=== PATIENT | female | born 1970 | race Caucasian/White ===

== ENCOUNTER 2018-08-18 20:06 | Emergency (ER) | payer OTHER, SELFPAY ==
[2018-08-18 20:08] VITALS: BP 105/68; PULSE 79; RESP 15; TEMP 36.7; BMI 30.6
--- NOTE | 2018-08-18 20:24 | ED.RN ---
PT ARRIVES REPORTING 2 DAYS OF DIARRHEA. STATES SINCE LAST NIGHT SHE FELT THAT SOMETHING WAS COMING OUT OF HER RECTUM. DENIES BLEEDING. DENIES HX HEMMORRHOIDS. REPORTS SHE OSCILLATES BETWEEN CONSTIPATION AND DIARRHEA REGULARLY.
--- NOTE | 2018-08-18 20:51 | ED.VIS.GEN ---
History of Present Illness Chief Complaint: Other, Pain/Inj Detail of Chief Complaint: rectal pain Informant: Patient Onset: Yesterday Context: Gradual Onset Timing: Continuous Quality: discomfort/swelling Location: perianal Current Severity: Moderate Maximum Severity: Moderate Worsened by: sitting Relieved by: nothing. tried hemorrhoid pads. Associated Symptoms: some diarrhea yest. generalized mild abd discomfort. no n/v. Narrative: Patient states she commonly goes back and forth from constipation to significant diarrhea. Yesterday she had some of the diarrhea she states that was not uncommon, but the anal discomfort that followed it she has never had before, it has worsened today. Past Medical History - Allergies and Home Meds Allergies/Adverse Reactions: Allergies Penicillins Allergy (Verified 08/18/18 20:11) Hives Primary Care Physician: Fito Covington MD [Primary Care Provider] - Past Medical History: None Lives: Spouse/ Significant Other Smoking Status: Never smoker Review of Systems General: Denies: Chills, Fever Gastrointestinal: Reports: Abdominal pain, Diarrhea, - - anal pain. Denies: Nausea, Vomiting, Melena, Hematochezia Genitourinary: Denies: Dysuria, Hematuria, Frequency Musculoskeletal: Denies: Neck pain, Back pain Physical Exam Vital Signs/Narrative: Vital Signs Temp Pulse Resp BP 08/18/18 20:08 98.1 F 79 15 105/68 Inital Vital Signs reviewed: Yes General: Well nourished, Well developed, No Acute Distress Head: Normocephalic, Atraumatic Abdomen: Soft, Nontender, Nondistended, Normal bowel sounds Rectal: Tenderness - 3cm thrombosed hemorrhoid approx 3 o'clock. no active bleeding/blood. Skin: Normal color, No rash Neurological: Alert, Oriented x3, Cranial nerves II-XII grossly intact, Normal Strength, Normal Sensation Psychological: Normal affect, Normal Mood Diagnostic/Tx/Re-eval - Medical Decision Making Thrombosed hemorrhoid incised and drained, I think this is responsible for her symptoms. Advised with regards to sit beds, dressings, and outpatient surgical follow-up if needed for recurrence. Advised to use topical anti-hemorrhoid medications after bleeding stops. Procedures Procedure(s): Incision and drainage of thrombosed hemorrhoid --prepped with chlorhexidine, anesthetized locally with 8 cc total of 1% lidocaine, incised radially with a 0.5 cm incision with a #11 blade, significant amount of clot was removed with minimal bleeding. Tolerated well. ED Disposition - Plan for ED Patient: Disposition: Home or Assisted Living Diagnosis: Thrombosed external hemorrhoid Instructions: Thrombosed Hemorrhoids Referrals: Phan Vitale MD [STAFF PHYSICIAN] - As Needed Additional Instructions: Sits baths twice daily with warm-hot soapy water. Afterwards, pat dry and dressed with antibiotic ointment and gauze dressing for the next several days until bleeding is resolved. Then, you may continue anti-hemorrhoid medications/creams.
== END 2018-08-18 22:53 | disposition home or self-care (01) ==
PROVIDERS: Emergency Provider Emergency Medicine; Family Provider Family Medicine; PCP Family Medicine
DX: K64.5 Perianal venous thrombosis (principal)
CPT/HCPCS: 46083; 99282

== ENCOUNTER 2019-11-10 02:37 | Observation (INO) | payer OTHER, SELFPAY ==
[2019-11-10] VITALS (8 sets, daily range): BP systolic 107–134; BP diastolic 60–86; PULSE 68–119; RESP 16–20; TEMP 36.6–37.1; O2SAT 96–100; BMI 30.7; BMI 30.3
--- NOTE | 2019-11-10 02:49 | EKG12_ITS ---
Test Reason : NAUSEA/VOMITING Blood Pressure : / mmHG Vent. Rate : 089 BPM Atrial Rate : 089 BPM P-R Int : 142 ms QRS Dur : 072 ms QT Int : 410 ms P-R-T Axes : 000 040 056 degrees QTc Int : 498 ms Normal sinus rhythm Prolonged QT Abnormal ECG Confirmed by VIJAY BLACKMON, MILADY ([id number]), associate editor KEE MOCK ([id number] on 11/11/2019 11:14:26 AM Referred By: LYNN Confirmed By:MILADY LINARES MD
--- NOTE | 2019-11-10 02:49 | ED.DCSUM_ITS ---
- ER Visit Summary Date of Service: 11/10/19 Chief Complaint: Nausea, vomiting and abdominal cramping History of Present Illness: The patient is a 49 F past medical history of depression anxiety. Prior tubal ligation. Also prior heart surgery at 8 years old for what sounds like either an ASD or VSD. Patient states she generally feels well today. Started having abdominal cramping this evening and around 130 this a.m. she started having nausea and vomiting. No diarrhea. No fever. No dysuria. She states she is several days late for her last menstrual period but has had a prior tubal ligation. She denies any dysuria. Physical Examination: Middle-aged female diaphoretic and pale. Vital signs are stable initial blood pressure 134/86. Heart rate 119. Afebrile. She does not look septic. HEENT exam dry mucous membranes. Neck nontender no lymphadenopathy no meningismus. Lungs are clear to auscultation bilaterally. No rales no rhonchi no wheezing. Heart tachycardic rate about 120 no murmur. Abdomen soft. Nondistended. Normal bowel sounds no peritoneal signs. Both the right upper right lower quadrants are unremarkable. No hernia or masses. No signs of obstruction. Moving all 4 extremities. Nontender no edema. Neurologically she is awake alert with no focal motor deficits. Skin is pale and diaphoretic. Test Results: BC shows an elevated white count of 20,000. Hemoglobin 14. No bands. Chemistries unremarkable normal creatinine and gap. Serum test negative. Due to the elevated white count if not may just be secondary to her intractable vomiting I did obtain a CAT scan of the abdomen and pelvis with IV contrast. CAT scan read by the radiologist is concern for possible partial mid small bowel obstruction. There is mild dilatation of the bowel. Also a hiatal hernia. No perforation. No signs of appendicitis. I also reviewed the CAT scan Emergency Department Course and Treatment: Patient treated with IV fluids and IV Zofran. Screening labs to be obtained. Repeat exam at 3:35 AM patient is starting to have some relief of her nausea with the IV Zofran and improvement with the IV fluids. With the elevated white count and epigastric discomfort I did obtain a CT. Repeat exam patient is feeling much better 4:39 AM. Abdomen is benign. Soft. She is currently nontender. She is only received nausea medications. I went over all test results with the patient. We did specifically discussed the CAT scan. This may be a conservative interpretation for partial small bowel obstruction or that it is resolving now clinically. Treatment Plan: Observation admission for further assessment. Disposition: Observation admission Impression: Acute nausea and vomiting Partial small bowel obstruction per radiologist on the CAT scan Acute dehydration Acute leukocytosis This note was generated with [employer] dictation software. It may contain incorrect words, spelling, and punctuation that were not noted in review of the chart prior to signing ED Disposition - Plan for ED Patient: Disposition: Home or Assisted Living Instructions: ED Nausea Vomiting Adult Prescriptions: Ondansetron [Zofran Odt] 4 mg PO Q8H PRN PRN #10 tab PRN Reason: Nausea Prescription Printed Referrals: Fito Covington MD [Primary Care Provider] - 3-5 Days if not improving Additional Instructions: Plenty of fluids and rest. Increase diet slowly as tolerated. Zofran as needed for nausea. Follow-up if not improving return to emergency department if feeling worse.
[2019-11-10] MEDS: 0.9% Normal Saline 1,000 ML 1000 ML IV (02:52)
[2019-11-10] MEDS: Ondansetron 4 MG/2 ML Vial IV (02:52)
[2019-11-10 02:54] LABS: Absolute Lymphocyte Count 4.67 X10^3/uL (0.83-4.51); Absolute Neutrophil Count 14.4 X10^3/uL (2.0-7.7); Basophil# 0.08 X10^3/uL; Basophil% 0.4 % (0-1); Eosinophil# 0.06 X10^3/uL; Eosinophils% 0.3 % (0-5); Hematocrit 42.4 % (37-47); Hemoglobin 14.3 g/dL (12.0-15.0); Lymphocyte # 4.67 X10^3/ul (4.0); Mean Corp Hgb Conc 33.7 g/dL (32-36); Mean Corpuscular Hgb 29.4 pg (27.0-32.0); Mean Corpuscular Volume 87.2 fL (81-99); Mean Platelet Vol. 11.4 fl (6.2-12.0); Monocyte% 4.9 % (0-10); NRBC Flagged by Analyzer 0 % (0-5); Neutrophil # 14.41 X10^3/uL (2.7-7.7); Neutrophil % 71.1 % (47-70); Platelet Count 409 K/mm3 (150-450); RBC Distribution Width CV 12.9 % (11.6-14.6); RBC Distribution Width SD 40.8 fl (35.1-43.9); Red Blood Count 4.86 M/mm3 (4.2-5.4); White Blood Count 20.3 K/mm3 (4.4-11.0)
[2019-11-10 03:09] LABS: ALB/GLOB Ratio 1.2 RATIO (0.9-2.4); AST(SGOT) 12 U/L (15-37); Alanine Aminotransfer ALT/SGPT 14 U/L (13-56); Albumin, Serum 4.3 g/dL (3.2-5.0); Alkaline Phosphatase 67 U/L (45-117); Anion Gap 15 (5-15); BUN 8 mg/dL (7-18); BUN/Creat Ratio 7.8 RATIO (10-20); Calcium,Total 10.4 mg/dL (8.5-10.1); Chloride 104 mmol/L (98-107); Creatinine, Serum 1.03 mg/dL (0.55-1.02); EST Glomerular Filtration Rate 61 mL/min (>60); Est Glom Filt Rate - Afr Amer 73 mL/min (>60); Estimated Creatinine Clearance 55.25 ml/min; Globulin 3.7 g/dL (2.2-4.2); Glucose 162 mg/dL (74-106); Potassium 3.6 mmol/L (3.5-5.1); Sodium Level 141 mmol/L (136-145)
[2019-11-10 03:32] LABS: Internal QC Validated? YES +Cl - CLEAR BKGD; Pregnancy, Serum, hCG Quali. NEGATIVE Negative
--- NOTE | 2019-11-10 03:35 | CT_ITS ---
STUDY: CT ABDOMEN AND PELVIS WITHOUT CONTRAST REASON FOR EXAM: Female, 49 years old. Abdominal pain, nausea, vomiting. Elevated white blood count. RADIATION DOSAGE (If Supplied By Facility): CTDIvol = ( 17.07 ) mGy, DLP = ( 1026.38 ) mGycm TECHNIQUE: Transaxial images were obtained from the dome of the diaphragm to the symphysis pubis without oral contrast, and without intravenous contrast. Sagittal and coronal images were reconstructed. Individualized dose optimization techniques were used for this CT. COMPARISON: None. FINDINGS: The visualized lung bases are unremarkable. The visualized portions of the heart are within normal limits. Small hiatal hernia. Normal liver. Normal gallbladder and extrahepatic biliary system. Normal spleen. Tail of the pancreas not present. Normal bilateral adrenal glands. Normal right kidney. Normal left kidney. Normal visualized stomach. Fluid-filled prominent loops of small bowel some distended to 2.6 cm, compatible with a mid small bowel obstruction. Terminal ileum is normal. Normal colon. There is non-visualization of the appendix. There is minimal atherosclerotic calcification of the abdominal aorta, without a demonstrated aneurysm. Normal inferior vena cava. Normal retroperitoneum. No intra-abdominal free air. Small amount of ascites in the dependent pelvis. Normal urinary bladder. Normal visualized uterus. No adnexal masses seen. Postsurgical changes of bilateral tubal ligation. Normal abdominal wall. Normal osseous structures. CT/Abdomen/Pelvis W IV Cont ONLY IMPRESSION: Mid small bowel obstruction. Small amount of pelvic ascites. Appendix not visualized. Appearance of the abdomen does not suggest acute appendicitis. Tail of pancreas not present. Small hiatal hernia. Electronically Signed: Adonis Loera MD at 4:22 EDT , Service support ,
--- NOTE | 2019-11-10 03:49 | ED.DEP ---
ED Disposition - Plan for ED Patient: Disposition: Home or Assisted Living Instructions: ED Nausea Vomiting Adult Prescriptions: Ondansetron [Zofran Odt] 4 mg PO Q8H PRN PRN #10 tab PRN Reason: Nausea Prescription Printed Referrals: Fito Covington MD [Primary Care Provider] - 3-5 Days if not improving Additional Instructions: Plenty of fluids and rest. Increase diet slowly as tolerated. Zofran as needed for nausea. Follow-up if not improving return to emergency department if feeling worse.
--- NOTE | 2019-11-10 05:20 | PCM.HP.STD ---
Problem List (1) Gastritis Status: Acute (2) SBO (small bowel obstruction) Status: Acute History of Present Illness Date of Admission: 11/10/19 Chief Complaint: nausea and vomiting The patient is a 49 year old F with a significant history of depression, anxiety, congenital heart murmur status post repair, x3, multiple D&Cs, and tubal ligation who presents to the emergency department with nausea and vomiting. Patient reports that because of malaise she thought she would rather tolerate scrambled eggs and toast. However, one hour after eating the scrambled eggs and toast she had a gassy feeling and abdominal pain. She describes her pain as caden-umbilical. She rated the pain as 5-6 on a scale of 1-10. She described the pain as cramping. She thought maybe she was going to have her menses after missing her menses a month ago. She then began to have multiple episodes of nausea and vomiting. Because her nausea and vomiting persisted she came to the emergency department. Associated with her symptoms is weakness, lightheadedness, numbness of her palms and feet; and diaphoresis. She had a feeling of swollen tongue. Although her bowels moved every day on the day of presentation her bowels did not move. Her last bowel movement was a day before presentation. She denies any fever. She reports chills. 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 She does not see people without a mask. She and her family have stayed home as much as possible. She reports some recent increased stress. Past Medical History Medical History: Medical History (Last Updated 11/10/19 @ 05:[address] Saqib Rene MD) Heart murmur R01.1 Allergies Penicillins Allergy (Verified 11/10/19 02:46) Hives Home Medications: Ambulatory Orders Medication Instructions Recorded Duloxetine Hcl [Cymbalta] 60 mg PO DAILY 02/22/16 Bupropion HCl [Bupropion HCl Sr] 200 mg PO BID 08/18/18 Ondansetron [Zofran Odt] 4 mg PO Q8H PRN PRN #10 tab 11/10/19 Surgical History: - - x3; multiple D&Cs; and tubal ligation. Repair of hearts for heart murmur at the age of 8. Smoking Status: Never smoker - *Family History Maternal History Items: Cancer - Breast cancer; and kidney cancer, - - Glaucoma Paternal History Items: Heart Disease Review of Systems Constitutional: Reports: Anorexia, Chills, Weakness. Denies: Fever, Weight Change HEENT: Denies: Head Aches, Sinus Congestion, Sinus Drainage Cardiovascular: Denies: Chest Pain, Palpitations Respiratory: Denies: Cough, Shortness of breath at rest, Sputum production Gastrointestinal: Reports: Abdominal Pain, Nausea, Vomiting Genitourinary: Denies: Dysuria Musculoskeletal: Denies: Joint Pain, Joint Tenderness Skin: Denies: Rash, Wounds Neurological: Reports: Numbness. Denies: Focal weakness, Tingling Psychiatric: Reports: Anxiety. Denies: Depression, Homicidal Ideations, Suicidal Ideations Hematologic/ Lymphatic: Denies: Easy Bruising, Easy Bleeding VTE Information - Inpt Only VTE Present on Admission: No VTE Mechan Device Prophylaxis: None VTE Pharm Prophylaxis ordered?: Yes Patient Problems: Active and Suspected Problems (Last Updated 11/10/19 @ 05:[address] Saqib Rene MD) Gastritis (Acute) SBO (small bowel obstruction) (Acute) - Physical Exam Vitals/I&O's: Vital Signs Temp Pulse Resp BP Pulse Ox 98.1 F 70 16 114/70 98 11/10/19 02:38 11/10/19 04:13 11/10/19 04:13 11/10/19 04:13 11/10/19 04:13 Oxygen Delivery Method Room Air Weight: 78.8 kg Body Mass Index (BMI) 30.7 Intake and Output for Last 24 Hours 11/08/19 11/09/19 11/10/19 23:59 23:59 23:59 Intake Total 1000 / 1000 Balance 1000 / 1000 General: Alert, Oriented x3, Cooperative HEENT: Atraumatic, PERRLA, EOMI, Normocephalic Neck: Supple, No JVD, Negative Carotid Bruits Lungs: Clear to auscultation, Normal air movement, No rhonchi, No wheeze, No rales Cardiovascular: Regular rate, Regular Rhythm, Normal S1, Normal S2, No murmurs Abdomen: Bowel Sounds Present, Soft, Non Tender Extremities: No edema, Capillary Refill Less than 3 Seconds Skin: No rashes, No breakdown Musculoskeletal: No Tenderness to Palpation of Joints or Extremities Neurological: Cranial nerves II-XII grossly intact, Neuro grossly intact Psych/Mental Status: Normal Affect, Appropriate Laboratory Results 11/10/19 02:44: WBC 20.3 H, RBC 4.86, Hgb 14.3, Hct 42.4, MCV 87.2, MCH 29.4, MCHC 33.7, RDW Std Deviation 40.8, RDW Coeff of Lizette 12.9, Plt Count 409, MPV 11.4, Immature Gran % (Auto) 0.300, Neut % (Auto) 71.1 H, Lymph % (Auto) 23.0, [place] % (Auto) 4.9, Eos % (Auto) 0.3, Baso % (Auto) 0.4, Absolute Neuts (auto) 14.4 H, Absolute Lymphs (auto) 4.67 H, Nucleated RBC % 0 11/10/19 02:44: Sodium 141, Potassium 3.6, Chloride 104, Carbon Dioxide 22.0, Anion Gap 15, BUN 8, Creatinine 1.03 H, Estim Creat Clear Calc 55.25, Est GFR (MDRD) Af Amer 73, Est GFR (MDRD) Non-Af 61, BUN/Creatinine Ratio 7.8 L, Glucose 162 H, Calcium 10.4 H, Total Bilirubin 0.60, AST 12 L, ALT 14, Alkaline Phosphatase 67, Total Protein 8.0, Albumin 4.3, Globulin 3.7, Albumin/Globulin Ratio 1.2 11/10/19 02:44: Serum , Qual NEGATIVE Assessment/Plan All Active Problems (Last Updated 11/10/19 @ 05:[address] Saqib Rene MD) Gastritis (Acute) SBO (small bowel obstruction) (Acute) The patient is a 49 year old F with a significant history of depression, anxiety, congenital heart murmur status post repair, x3, multiple D&Cs, and tubal ligation who presents emergency department with nausea and vomiting; abdominal pain; weakness, lightheadedness, numbness of her palms and feet; and diaphoresis. Acute gastritis Likely viral from food poisoning. Noted to have tachycardia (heart rates 119 on presentation); white count of 20.3. Patient does not look sick. No need for antibiotics at this time. We will keep n.p.o. except meds. Normal saline with 20 mEq of potassium 75 mL's per hour ordered. Morphine IV as needed for pain. Compazine IV. For nausea. Compazine IV as needed for pain. With patient having a feeling of swelling tongue, rule out allergic reaction. Pepcid IV twice daily ordered. Small bowel obstruction For conservative management with pain control and antiemetics as above. Her abdomen is benign. Conservative management. Consult General Surgery. Prolonged QT interval QT interval 498, high normal. Avoid QT prolongation drugs. Compazine IV for nausea not Zofran. Depression anxiety Cymbalta and bupropion continued DVT prophylaxis Subcutaneous heparin OBSV E&M: [id number] Initial observation care L3
[2019-11-10] MEDS: Heparin Injection (Vial) 5,000 UNIT/ML VIAL 5000 UNIT SC ×3 (06:04→22:21)
[2019-11-10 06:13] LABS: Absolute Lymphocyte Count 1.25 X10^3/uL (0.83-4.51); Absolute Neutrophil Count 15.6 X10^3/uL (2.0-7.7); Basophil# 0.06 X10^3/uL; Basophil% 0.3 % (0-1); Hematocrit 36.5 % (37-47); Lymphocyte # 1.25 X10^3/ul (4.0); Lymphocyte % 7.2 % (19-41); Mean Corp Hgb Conc 32.9 g/dL (32-36); Mean Corpuscular Hgb 29.4 pg (27.0-32.0); Mean Corpuscular Volume 89.5 fL (81-99); Mean Platelet Vol. 11.3 fl (6.2-12.0); Monocyte# 0.51 X10^3/uL; Monocyte% 2.9 % (0-10); NRBC Flagged by Analyzer 0 % (0-5); Neutrophil # 15.55 X10^3/uL (2.7-7.7); Neutrophil % 89.1 % (47-70); Platelet Count 311 K/mm3 (150-450); RBC Distribution Width CV 12.9 % (11.6-14.6); RBC Distribution Width SD 42.5 fl (35.1-43.9); Red Blood Count 4.08 M/mm3 (4.2-5.4); White Blood Count 17.5 K/mm3 (4.4-11.0)
[2019-11-10] MEDS: Famotidine 200 MG/20 ML MDV 20 MG in 0.9% Normal Saline (Pres. free 8 ML 300 MG IV (06:15)
[2019-11-10 06:31] LABS: Anion Gap 6 (5-15); BUN 7 mg/dL (7-18); BUN/Creat Ratio 8.2 RATIO (10-20); Chloride 108 mmol/L (98-107); Creatinine, Serum 0.86 mg/dL (0.55-1.02); EST Glomerular Filtration Rate 75 mL/min (>60); Est Glom Filt Rate - Afr Amer 91 mL/min (>60); Estimated Creatinine Clearance 66.18 ml/min; Glucose 107 mg/dL (74-106); Potassium 3.9 mmol/L (3.5-5.1); Sodium Level 141 mmol/L (136-145)
--- NOTE | 2019-11-10 07:42 | PCM.PN.BLA ---
Progress Note Patient is a 49-year-old lady who presented with abdominal discomfort associated with nausea and vomiting. CT of the abdomen demonstrated Mid small bowel obstruction. Mated to regular nursing floor with consultation placed to general surgery Patient seen and examined, her initial assessment including history and physical diagnostic data consultation note and management orders reviewed will follow STROKE Vital Signs/Narrative: Vital Signs Temp Pulse Resp BP Pulse Ox 11/10/19 06:54 96 11/10/19 05:35 98.4 F 68 16 109/60 100 11/10/19 05:22 97.9 F 82 16 107/70 99 11/10/19 04:13 70 16 114/70 98
--- NOTE | 2019-11-10 07:57 | PCM.CONS.GEN ---
Problem List (1) SBO (small bowel obstruction) Status: Acute Reason for Consult Date of Consultation: 11/10/19 Reason for Consultation: Nausea and vomiting History of Present Illness: The patient is a 49 year old F presented yesterday evening to the emergency room with abdominal pain and nausea vomiting. Patient does not report eating anything abnormal. She says this started yesterday. This morning she is feeling much better with no nausea or vomiting and her abdominal pain has mostly subsided. She is still not passing any flatus. She is never had a bowel obstruction in the past. She did report that she ate a very large amount of carrots. Past Medical History Medical History: Medical History (Last Updated 11/10/19 @ 05:[address] Saqib Rene MD) Heart murmur R01.1 Allergies Penicillins Allergy (Verified 11/10/19 02:46) Hives Home Medications: Ambulatory Orders Medication Instructions Recorded Duloxetine Hcl [Cymbalta] 60 mg PO DAILY 02/22/16 Bupropion HCl [Bupropion HCl Sr] 200 mg PO BID 08/18/18 Ondansetron [Zofran Odt] 4 mg PO Q8H PRN PRN #10 tab 11/10/19 Surgical History: - - x3; multiple D&Cs; and tubal ligation. Repair of hearts for heart murmur at the age of 8. Smoking Status: Never smoker - *Family History Maternal History Items: Cancer - Breast cancer; and kidney cancer, - - Glaucoma Paternal History Items: Heart Disease Review of Systems Constitutional: Denies: Anorexia, Fever Eyes: Denies: Blurred vision HEENT: Denies: Difficulty Swallowing Cardiovascular: Denies: Chest Pain Respiratory: Denies: Shortness of Breath Gastrointestinal: Reports: Abdominal Pain, Nausea, Vomiting Genitourinary: Denies: Dysuria Musculoskeletal: Denies: Joint Tenderness Skin: Denies: Jaundice Psychiatric: Denies: Anxiety Patient Problems: Active and Suspected Problems (Last Updated 11/10/19 @ 05:[address] Saqib Rene MD) Gastritis (Acute) SBO (small bowel obstruction) (Acute) - Physical Exam Vitals/I&O's: Vital Signs Temp Pulse Resp BP Pulse Ox 98.4 F 68 16 109/60 96 11/10/19 05:35 11/10/19 05:35 11/10/19 05:35 11/10/19 05:35 11/10/19 06:54 Oxygen Delivery Method Room Air Weight: 171 lb 4.787 oz Body Mass Index (BMI) 30.3 Intake and Output for Last 24 Hours 11/08/19 11/09/19 11/10/19 23:59 23:59 23:59 Intake Total 1010 / 1010 Balance 1010 / 1010 General: Alert, Oriented x3 Neck: No JVD Lungs: Normal air movement Cardiovascular: Regular rate, Regular Rhythm Abdomen: Soft, Non Tender, Non-Distended Laboratory Results 11/10/19 02:44: WBC 20.3 H, RBC 4.86, Hgb 14.3, Hct 42.4, MCV 87.2, MCH 29.4, MCHC 33.7, RDW Std Deviation 40.8, RDW Coeff of Lizette 12.9, Plt Count 409, MPV 11.4, Immature Gran % (Auto) 0.300, Neut % (Auto) 71.1 H, Lymph % (Auto) 23.0, [place] % (Auto) 4.9, Eos % (Auto) 0.3, Baso % (Auto) 0.4, Absolute Neuts (auto) 14.4 H, Absolute Lymphs (auto) 4.67 H, Nucleated RBC % 0 11/10/19 02:44: Sodium 141, Potassium 3.6, Chloride 104, Carbon Dioxide 22.0, Anion Gap 15, BUN 8, Creatinine 1.03 H, Estim Creat Clear Calc 55.25, Est GFR (MDRD) Af Amer 73, Est GFR (MDRD) Non-Af 61, BUN/Creatinine Ratio 7.8 L, Glucose 162 H, Calcium 10.4 H, Total Bilirubin 0.60, AST 12 L, ALT 14, Alkaline Phosphatase 67, Total Protein 8.0, Albumin 4.3, Globulin 3.7, Albumin/Globulin Ratio 1.2 11/10/19 02:44: Serum , Qual NEGATIVE 11/10/19 05:50: WBC 17.5 H, RBC 4.08 L, Hgb 12.0, Hct 36.5 L, MCV 89.5, MCH 29.4, MCHC 32.9, RDW Std Deviation 42.5, RDW Coeff of Lizette 12.9, Plt Count 311, MPV 11.3, Immature Gran % (Auto) 0.500, Neut % (Auto) 89.1 H, Lymph % (Auto) 7.2 L, [place] % (Auto) 2.9, Eos % (Auto) 0.0, Baso % (Auto) 0.3, Absolute Neuts (auto) 15.6 H, Absolute Lymphs (auto) 1.25, Nucleated RBC % 0 11/10/19 05:50: Sodium 141, Potassium 3.9, Chloride 108 H, Carbon Dioxide 27.0, Anion Gap 6, BUN 7, Creatinine 0.86, Estim Creat Clear Calc 66.18, Est GFR (MDRD) Af Amer 91, Est GFR (MDRD) Non-Af 75, BUN/Creatinine Ratio 8.2 L, Glucose 107 H, Calcium 9.0 Current Medications Bupropion HCl (Wellbutrin Sr (100mg Tablets)) 200 mg PO BID [facility] Dextrose (D50w Syringe) 0 gm IV X1 PRN; Protocol PRN Reason: Hypoglycemia Duloxetine HCl (Cymbalta) 60 mg PO DAILY [facility] Glucagon () 1 mg IM .X1 PRN PRN Reason: Hypoglycemia Heparin Sodium (Porcine) (Heparin Na) 5,000 unit SC Q8 [facility] Last Admin: 11/10/19 06:04 Dose: 5,000 unit Documented by: Potassium Chloride/Sodium Chloride () 1,000 mls @ 75 mls/hr IV .[id number] [facility] Last Admin: 11/10/19 06:04 Dose: 75 mls/hr Documented by: Sodium Chloride () 250 mls @ 15 mls/hr IV .[id number] PRN PRN Reason: Saline Flush Sodium Chloride () 250 mls @ 15 mls/hr IV .[id number] PRN PRN Reason: Additional IVPB Infusion Famotidine 20 mg/ Sodium (Chloride) 10 mls @ 300 mls/hr IV Q24 [facility] Last Infusion: 11/10/19 06:17 Dose: Infused Documented by: Morphine Sulfate () 2 mg IV Q3H PRN PRN PRN Reason: Pain Score 6-10/10 Prochlorperazine Edisylate (Compazine Iv) 5 mg IV Q4H PRN PRN PRN Reason: Breakthrough nausea/vomiting Sodium Chloride () 10 - 40 ml IV UD PRN PRN Reason: SALINE FLUSH Assessment/Plan All Active Problems (Last Updated 11/10/19 @ 05:[address] Saqib Rene MD) Gastritis (Acute) SBO (small bowel obstruction) (Acute) 49-year-old female with nausea and vomiting 1. The patient was having nausea and vomiting and abdominal pain yesterday. This has resolved. Her abdomen is soft and nontender today and she has had no further nausea or vomiting. The patient still reports he is not passing flatus. I reviewed her CT scan and she does have some dilated small bowel but no transition point. She does have a large amount of stool in her colon. Her terminal ileum does appear a little bit thickened. She may have gastroenteritis. She also ate a large amount of carrots and this may be causing a partial obstruction. Since she is having no nausea vomiting and pain I will start her on a clear liquid diet and order a half bottle of mag citrate as well as a Dulcolax suppository. If she tolerates clear liquid diet can be advanced. 2. No surgical indication at this time. Maikel Patel MD Pager: [facility] [address] [place] [address], [address] [place] [address] Office:
[2019-11-10] MEDS: Magnesium Citrate 300 ML 150 ML PO (08:17)
[2019-11-10] MEDS: Bisacodyl 10 MG Suppository RECTAL (08:17)
[2019-11-10] MEDS: buPROPion (SR) 100 MG TABLET.SA 200 MG PO (22:17)
[2019-11-10] MEDS: DULoxetine Hcl 60 MG Capsule PO (22:17)
[2019-11-11 02:13] VITALS: BP 123/63; PULSE 87; RESP 16; TEMP 36.9; O2SAT 98
[2019-11-11] MEDS: Heparin Injection (Vial) 5,000 UNIT/ML VIAL 5000 UNIT SC (05:39)
--- NOTE | 2019-11-11 07:17 | PN.SURG_ITS ---
Patient Problems: Active and Suspected Problems (Last Updated 11/10/19 @ 05:[address] Saqib Rene MD) Gastritis (Acute) SBO (small bowel obstruction) (Acute) Subjective: Patient reports no nausea or vomiting and she is feeling well with no abdominal pain. She is passing gas and had a bowel movement. She tolerated regular diet. - Physical Exam Vitals/I&O's: Vital Signs Temp Pulse Resp BP Pulse Ox 98.5 F 87 16 123/63 H 98 11/11/19 02:13 11/11/19 02:13 11/11/19 02:13 11/11/19 02:13 11/11/19 02:13 Oxygen Delivery Method Room Air Weight: 171 lb 4.787 oz Body Mass Index (BMI) 30.3 Intake and Output for Last 24 Hours 11/09/19 11/10/19 11/11/19 23:59 23:59 23:59 Intake Total 3107.5 / 3107.5 Balance 3107.5 / 3107.5 General: Alert, Oriented x3 Lungs: Normal air movement Abdomen: Soft, Non Tender, Non-Distended Current Medications Bupropion HCl (Wellbutrin Sr (100mg Tablets)) 200 mg PO BID [facility] Last Admin: 11/10/19 22:17 Dose: 200 mg Documented by: Dextrose (D50w Syringe) 0 gm IV X1 PRN; Protocol PRN Reason: Hypoglycemia Duloxetine HCl (Cymbalta) 60 mg PO QHS [facility] Last Admin: 11/10/19 22:17 Dose: 60 mg Documented by: Glucagon () 1 mg IM .X1 PRN PRN Reason: Hypoglycemia Heparin Sodium (Porcine) (Heparin Na) 5,000 unit SC Q8 [facility] Last Admin: 11/11/19 05:39 Dose: 5,000 unit Documented by: Potassium Chloride/Sodium Chloride () 1,000 mls @ 75 mls/hr IV .[id number] [facility] Last Admin: 11/10/19 19:22 Dose: 75 mls/hr Documented by: Sodium Chloride () 250 mls @ 15 mls/hr IV .[id number] PRN PRN Reason: Saline Flush Sodium Chloride () 250 mls @ 15 mls/hr IV .[id number] PRN PRN Reason: Additional IVPB Infusion Famotidine 20 mg/ Sodium (Chloride) 10 mls @ 300 mls/hr IV Q24 [facility] Last Infusion: 11/10/19 06:17 Dose: Infused Documented by: Morphine Sulfate () 2 mg IV Q3H PRN PRN PRN Reason: Pain Score 6-10/10 Prochlorperazine Edisylate (Compazine Iv) 5 mg IV Q4H PRN PRN PRN Reason: Breakthrough nausea/vomiting Sodium Chloride () 10 - 40 ml IV UD PRN PRN Reason: SALINE FLUSH Medical Necessity - Tobacco Use Smoking Status: Never smoker Assessment/Plan All Active Problems (Last Updated 11/10/19 @ 05:[address] Saqib Rene MD) Gastritis (Acute) SBO (small bowel obstruction) (Acute) 49-year-old female with obstruction 1. Small obstruction appears to be due to a large amount of carrots and it has resolved. Patient reports she is tolerating a diet and having bowel movement and passing flatus. I am repeating CBC this morning as long as that is improved she may be discharged home from my standpoint. Follow-up as needed. Maikel Patel MD Pager: [facility] [address] [place] [address], [address] [place] [address] Office:
[2019-11-11 07:28] VITALS: O2SAT 97
[2019-11-11 07:56] LABS: Absolute Lymphocyte Count 2.82 X10^3/uL (0.83-4.51); Absolute Neutrophil Count 3.1 X10^3/uL (2.0-7.7); Basophil# 0.04 X10^3/uL; Basophil% 0.6 % (0-1); Eosinophil# 0.73 X10^3/uL; Eosinophils% 10.3 % (0-5); Hematocrit 35.2 % (37-47); Hemoglobin 11.3 g/dL (12.0-15.0); Lymphocyte # 2.82 X10^3/ul (4.0); Lymphocyte % 39.8 % (19-41); Mean Corp Hgb Conc 32.1 g/dL (32-36); Mean Corpuscular Hgb 29.1 pg (27.0-32.0); Mean Corpuscular Volume 90.7 fL (81-99); Mean Platelet Vol. 11.3 fl (6.2-12.0); Monocyte# 0.38 X10^3/uL; Monocyte% 5.4 % (0-10); NRBC Flagged by Analyzer 0 % (0-5); Neutrophil % 43.6 % (47-70); Platelet Count 271 K/mm3 (150-450); RBC Distribution Width CV 13.2 % (11.6-14.6); RBC Distribution Width SD 43.2 fl (35.1-43.9); Red Blood Count 3.88 M/mm3 (4.2-5.4); White Blood Count 7.1 K/mm3 (4.4-11.0)
--- NOTE | 2019-11-11 08:46 | DCINST_ITS ---
- Discharge Diagnoses Current Active Problems: Current Active and Chronic Problems (Last Updated 11/10/19 @ 05:[address] Saqib Rene MD) Gastritis (Acute) SBO (small bowel obstruction) (Acute) You will use the following diet at home:: No restrictions Discharge Activity: Return to Normal Activity Instructions: ED Nausea Vomiting Adult Allergies/Adverse Reactions: Allergies Penicillins Allergy (Verified 11/10/19 02:46) Hives Medications to take at Discharge Duloxetine Hcl [Cymbalta] 60 mg PO QHS 02/22/16 Bupropion HCl [Bupropion HCl Sr] 200 mg PO BID 08/18/18 Ondansetron [Zofran Odt] 4 mg PO Q8H PRN PRN #10 tab 11/10/19 The following prescriptions were given: Ondansetron [Zofran Odt] 4 mg PO Q8H PRN PRN #10 tab PRN Reason: Nausea Prescription Printed Primary Care Physician: Fito Covington MD [Primary Care Provider] - 3-5 Days if not improving Test Results: Test results from this visit will be discussed in further detail at your follow- up appointment, if applicable. Proposed Discharge Date: 11/11/19
--- NOTE | 2019-11-11 08:47 | DS.PCM_ITS ---
Discharge Date and Diagnosis - Problem List Patient Problems: Active and Suspected Problems (Last Updated 11/10/19 @ 05:[address] Saqib Rene MD) Gastritis (Acute) SBO (small bowel obstruction) (Acute) Date of Admission: 11/10/19 Date of Discharge: 11/11/19 - Primary Discharge Diagnosis Acute Problems: Active Problems (Last Updated 11/10/19 @ 05:[address] Saqib Rene MD) Gastritis (Acute) SBO (small bowel obstruction) (Acute) Hospital Course and Treatment Imaging Results: Clinical Impression(s) from Imaging Studies Abdomen/Pelvis CT 11/10/19 03:35 IMPRESSION: Mid small bowel obstruction. Small amount of pelvic ascites. Appendix not visualized. Appearance of the abdomen does not suggest acute appendicitis. Tail of pancreas not present. Small hiatal hernia. Electronically Signed: Adonis Loera MD at 4:22 EDT , Service support , Summary of Care Provided: Patient is a 49-year-old lady who presented with abdominal discomfort associated with nausea and vomiting. CT of the abdomen demonstrated Mid small bowel obstruction. Admitted to regular nursing floor with consultation placed to general surgery. Patient was managed conservatively with improvement in symptoms discharged a day after her admission. Patient Problems: Active and Suspected Problems (Last Updated 11/10/19 @ 05:[address] Saqib Rene MD) Gastritis (Acute) SBO (small bowel obstruction) (Acute) - Physical Exam Vitals/I&O's: Vital Signs Temp Pulse Resp BP Pulse Ox 98.5 F 87 16 123/63 H 97 11/11/19 02:13 11/11/19 02:13 11/11/19 02:13 11/11/19 02:13 11/11/19 07:28 Oxygen Delivery Method Room Air Weight: 77.7 kg Body Mass Index (BMI) 30.3 Intake and Output for Last 24 Hours 11/09/19 11/10/19 11/11/19 23:59 23:59 23:59 Intake Total 3107.5 / 3107.5 Balance 3107.5 / 3107.5 General: Alert HEENT: Atraumatic Oral: Moist Mucosa Neck: Supple Psych/Mental Status: Normal Affect Laboratory Results 11/11/19 07:45: WBC 7.1, RBC 3.88 L, Hgb 11.3 L, Hct 35.2 L, MCV 90.7, MCH 29.1, MCHC 32.1, RDW Std Deviation 43.2, RDW Coeff of Lizette 13.2, Plt Count 271, MPV 11.3, Immature Gran % (Auto) 0.300, Neut % (Auto) 43.6 L, Lymph % (Auto) 39.8, Turner % (Auto) 5.4, Eos % (Auto) 10.3 H, Baso % (Auto) 0.6, Absolute Neuts (auto) 3.1, Absolute Lymphs (auto) 2.82, Nucleated RBC % 0 Current Medications Bupropion HCl (Wellbutrin Sr (100mg Tablets)) 200 mg PO BID [facility] Last Admin: 11/10/19 22:17 Dose: 200 mg Documented by: Dextrose (D50w Syringe) 0 gm IV X1 PRN; Protocol PRN Reason: Hypoglycemia Duloxetine HCl (Cymbalta) 60 mg PO QHS [facility] Last Admin: 11/10/19 22:17 Dose: 60 mg Documented by: Glucagon () 1 mg IM .X1 PRN PRN Reason: Hypoglycemia Heparin Sodium (Porcine) (Heparin Na) 5,000 unit SC Q8 [facility] Last Admin: 11/11/19 05:39 Dose: 5,000 unit Documented by: Potassium Chloride/Sodium Chloride () 1,000 mls @ 75 mls/hr IV .[id number] [facility] Last Admin: 11/10/19 19:22 Dose: 75 mls/hr Documented by: Sodium Chloride () 250 mls @ 15 mls/hr IV .[id number] PRN PRN Reason: Saline Flush Sodium Chloride () 250 mls @ 15 mls/hr IV .[id number] PRN PRN Reason: Additional IVPB Infusion Famotidine 20 mg/ Sodium (Chloride) 10 mls @ 300 mls/hr IV Q24 [facility] Last Infusion: 11/10/19 06:17 Dose: Infused Documented by: Morphine Sulfate () 2 mg IV Q3H PRN PRN PRN Reason: Pain Score 6-10/10 Prochlorperazine Edisylate (Compazine Iv) 5 mg IV Q4H PRN PRN PRN Reason: Breakthrough nausea/vomiting Sodium Chloride () 10 - 40 ml IV UD PRN PRN Reason: SALINE FLUSH Discharge Diet: No Restrictions Discharge Activity: Return to Normal Activity Home Medications: Medications to take at Discharge Duloxetine Hcl [Cymbalta] 60 mg PO QHS 02/22/16 Bupropion HCl [Bupropion HCl Sr] 200 mg PO BID 08/18/18 Ondansetron [Zofran Odt] 4 mg PO Q8H PRN PRN #10 tab 11/10/19 Following Prescrptions Were Given to Patient: Ondansetron [Zofran Odt] 4 mg PO Q8H PRN PRN #10 tab PRN Reason: Nausea Prescription Printed Primary Care Physician: Fito Covington MD [Primary Care Provider] - 3-5 Days if not improving Patient Instructions: ED Nausea Vomiting Adult Disposition: Home Minutes spent on discharge:: 35 Patient Condition:: Stable Medical Necessity - Tobacco Use Smoking Status: Never smoker Meaningful Use Info Meaningful Use Diagnoses (Choose all that apply): None applicable OBSV E&M: 88113 Observation care discharge
[2019-11-11 09:06] VITALS: BP 121/71; PULSE 83; RESP 18; TEMP 36.7; O2SAT 98
== END 2019-11-11 09:18 | disposition home or self-care (01) ==
LOC: ED 03:50 → MS3 05:23
PROVIDERS: Surgery; Admitting Provider Hospitalist; Emergency Provider Emergency Medicine; PCP Family Medicine; Visit Provider Internal Medicine
DX: K56.600 Partial intestinal obstruction, unspecified as to cause (principal); K29.00 Acute gastritis without bleeding; F41.9 Anxiety disorder, unspecified; F32.9 Major depressive disorder, single episode, unspecified; E86.0 Dehydration; D72.829 Elevated white blood cell count, unspecified; Z79.899 Other long term (current) drug therapy; R94.31 Abnormal electrocardiogram [ECG] [EKG]
CPT/HCPCS: 36415; 74177; 80048; 80053; 84703; 85025; 93005; 96361; 96372; 96374; 96375; 99218; 99285; J7030; Q9967; G0378; J2405; J3490

== ENCOUNTER → 2020-02-11 | Outpatient (CLI) | payer OTHER, SELFPAY ==
[2019-11-10 05:39] VITALS: BMI 30.3
== END | disposition home or self-care (01) ==
LOC: LABSPEC 09:52
PROVIDERS: PCP Family Medicine; Referring Provider Family Medicine; Visit Provider Family Medicine
DX: Z20.828 Contact with and (suspected) exposure to other viral communicable diseases (principal)
CPT/HCPCS: 87635; C9803; U0003

== ENCOUNTER 2020-08-27 16:27 | Outpatient (RCR) | payer OTHER, SELFPAY ==
[2019-11-10 05:39] VITALS: BMI 30.3
== END 2020-11-02 23:59 ==
LOC: IMMUN 16:27
PROVIDERS: PCP Family Medicine; Visit Provider Family Medicine
DX: Z23 Encounter for immunization (principal)
CPT/HCPCS: 0001A; 0002A; 91300